=== PATIENT | female | born 1965 | race Native Hawaiian/Other Pacific Islander ===

== ENCOUNTER 2018-03-13 19:18 | Inpatient (IN) | payer MEDICAID, OTHER ==
[~2018-03-13] VITALS: Ht 162.6 cm; Wt 83.1 kg
[~2018-03-13 19:18] MED LIST: ATEN-188 PO; LISI-618 PO; LURA40 PO
[2018-03-13] MEDS ORDERED: LORazepam 2 MG/ML VIAL IM ONE (21:00)
[2018-03-13] MEDS ORDERED: DiphenhydrAMINE HCL 50 MG/ML VIAL IM ONE (21:00)
[2018-03-13] MEDS ORDERED: HALOPERIDOL LACTATE 5 MG/ML VIAL IM ONE (21:00)
[2018-03-13] MEDS ORDERED: HALOPERIDOL 5 MG TABLET PO PRN (21:30)
[2018-03-13] MEDS ORDERED: ZOLPIDEM TARTRATE 10 MG TABLET PO PRN (21:30)
[2018-03-13] MEDS ORDERED: LORazepam 2 MG TABLET PO PRN (21:30)
[2018-03-13 22:00] LABS: BASOPHILS % (AUTO) 0.4 % (0.0-2.0); EOSINOPHILS % (AUTO) 0.9 % (1.0-6.0); HEMATOCRIT 30.2 % (36-46); HEMOGLOBIN 9.3 g/dL (12.0-16.0); LYMPHOCYTES # (AUTO) 2.4 K/uL (1.0-4.8); MEAN CORPUSCULAR HEMOGLOBIN 22.3 pg (26.0-34.0); MEAN CORPUSCULAR HGB CONC 30.7 G/dL (31.0-37.0); MEAN CORPUSCULAR VOLUME 73 fL (80-100); MONOCYTES # (AUTO) 0.6 K/uL (0.1-1.0); MONOCYTES % (AUTO) 7.7 % (2.0-9.0); NEUTROPHILS # (AUTO) 4.5 K/uL (1.8-7.7); PLATELET COUNT (AUTO) 280 K/uL (150-450); RED BLOOD CELL COUNT(AUTO) 4.15 MIL/uL (4.00-5.20); RED CELL DISTRIBUTION WIDTH 18.4 % (11.5-14.5)
[2018-03-13 22:13] LABS: ANION GAP 7 mmol/L (8-16); CALCIUM, TOTAL 8.5 mg/dL (8.8-10.5); CARBON DIOXIDE 27 mmol/L (22-29); CHLORIDE 103 mmol/L (98-107); CREATININE 0.66 mg/dL (0.60-1.30); GLOMERULAR FILTR. RATE CALC > 60 mL/min (>60); GLUCOSE,RANDOM 84 mg/dL (70-110); POTASSIUM 3.3 mmol/L (3.5-5.1); SODIUM SERUM 137 mmol/L (136-145); UREA NITROGEN, BLOOD 13 mg/dL (7-18)
[2018-03-13 22:28] LABS: ALANINE AMINOTRANSFERASE 15 U/L (12-78); ALBUMIN 3.3 g/dL (3.4-5.0); ALKALINE PHOSPHATASE 71 U/L (46-116); ASPARTATE AMINOTRANSFERASE 17 U/L (15-37); BILIRUBIN,TOTAL 0.3 mg/dL (0.1-1.0); HCG,QUANTITATIVE < 1 mIU/mL (0-6); THYROID STIMULATING HORMONE 0.73 uIU/mL (0.36-3.74); TOTAL PROTEIN, SERUM 7.4 g/dL (6.4-8.2)
[2018-03-13] MEDS ORDERED: POTASSIUM CHLORIDE 20 MEQ ER TABLET PO ONE (22:30)
[2018-03-13 22:34] LABS: PLATELET MORPHOLOGY COMMENT NORMAL
[2018-03-14 03:11] VITALS: BP 132/70
[2018-03-14] MEDS ORDERED: PNEUMOCOCCAL VACCINE POLYVALENT 0.5 ML VIAL [PPSV23] IM ONE (03:15)
[2018-03-14] MEDS ORDERED: TUBERCULIN, PURIFIED PROTEIN DERIVATIVE 5 TU/0.1 ML SYG ID ONE (12:15)
[2018-03-14] MEDS ORDERED: MAG HYDROX/AL HYDROX/SIMETH ES 30 ML SUSPENSION UDCUP PO PRN (12:15)
[2018-03-14] MEDS ORDERED: OLANZapine 5 MG RAPDIS TABLET PO PRN (12:15)
[2018-03-14] MEDS ORDERED: GuaiFENesin/D-METHORPHAN [SUGAR-FREE] 200-20MG/10 ML SYRUP UDCUP PO PRN (12:15)
[2018-03-14] MEDS ORDERED: PROMETHAZINE HCL 25 MG TABLET PO PRN (12:15)
[2018-03-14] MEDS ORDERED: ACETAMINOPHEN 325 MG TABLET PO PRN (12:15)
[2018-03-14] MEDS ORDERED: HydrOXYzine PAMOATE 50 MG CAPSULE PO PRN (12:15)
[2018-03-14] MEDS ORDERED: LOPERAMIDE HCL 2 MG CAPSULE PO PRN (12:15)
[2018-03-14] MEDS ORDERED: MAGNESIUM HYDROXIDE SUSPENSION 30 ML UDCUP PO PRN (12:15)
[2018-03-14] MEDS: THIAMINE HCL 100 MG TABLET PO SCH (17:04)
[2018-03-14 17:07] VITALS: BP 157/87
[2018-03-14] MEDS ORDERED: OLANZapine 5 MG RAPDIS TABLET PO SCH (21:00)
[2018-03-15 06:13] VITALS: BP 130/75
[2018-03-15 08:10] VITALS: BP 130/73
[2018-03-15] MEDS: MULTIVITAMINS WITH MINERALS, THERAPEUTIC TABLET PO SCH (08:27)
[2018-03-15] MEDS: FOLIC ACID 1 MG TABLET PO SCH (08:27)
[2018-03-15] MEDS: LISINOPRIL 20 MG TABLET PO SCH (08:28)
[2018-03-15] MEDS: NALTREXONE HCL 50 MG TABLET PO SCH (08:28)
[2018-03-15] MEDS: THIAMINE HCL 100 MG TABLET PO SCH ×2 (08:28→16:56)
[2018-03-15] MEDS: FLUoxetine HCL 20 MG CAPSULE PO SCH (08:28)
[2018-03-15 16:51] VITALS: BP 139/82
[2018-03-15] MEDS: OLANZapine 10 MG RAPDIS TABLET PO SCH (21:00)
[2018-03-16 02:39] VITALS: BP 135/85
[2018-03-16 08:14] VITALS: BP 158/93
[2018-03-16 08:59] LABS: ANION GAP 10 mmol/L (8-16); CALCIUM, TOTAL 8.8 mg/dL (8.8-10.5); CARBON DIOXIDE 25 mmol/L (22-29); CHLORIDE 106 mmol/L (98-107); CHOL/HDL RATIO 2.2 (3.9-5.7); CHOLESTEROL 124 mg/dL (131-200); GLOMERULAR FILTR. RATE CALC > 60 mL/min (>60); GLUCOSE,RANDOM 85 mg/dL (70-110); HDL CHOLESTEROL 56 mg/dL (40-60); LDL CHOL (CALC.) 55 mg/dL (0-130); POTASSIUM 3.7 mmol/L (3.5-5.1); SODIUM SERUM 141 mmol/L (136-145); TRIGLYCERIDES 66 mg/dL (15-150); UREA NITROGEN, BLOOD 15 mg/dL (7-18)
[2018-03-16] MEDS: FLUoxetine HCL 20 MG CAPSULE PO SCH (09:00)
[2018-03-16] MEDS: LISINOPRIL 20 MG TABLET PO SCH (09:00)
[2018-03-16] MEDS: MULTIVITAMINS WITH MINERALS, THERAPEUTIC TABLET PO SCH (09:00)
[2018-03-16] MEDS: FOLIC ACID 1 MG TABLET PO SCH (09:00)
[2018-03-16] MEDS: THIAMINE HCL 100 MG TABLET PO SCH ×2 (09:00→17:00)
[2018-03-16] MEDS: NALTREXONE HCL 50 MG TABLET PO SCH (09:00)
[2018-03-16] MEDS: OLANZapine 10 MG RAPDIS TABLET PO SCH (21:00)
[2018-03-17 06:51] VITALS: BP 135/80
[2018-03-17 08:32] VITALS: BP 160/91
[2018-03-17] MEDS: NALTREXONE HCL 50 MG TABLET PO SCH (08:49)
[2018-03-17] MEDS: FOLIC ACID 1 MG TABLET PO SCH (08:49)
[2018-03-17] MEDS: THIAMINE HCL 100 MG TABLET PO SCH ×2 (08:49→17:00)
[2018-03-17] MEDS: FLUoxetine HCL 20 MG CAPSULE PO SCH (08:49)
[2018-03-17] MEDS: LISINOPRIL 20 MG TABLET PO SCH (08:49)
[2018-03-17] MEDS: MULTIVITAMINS WITH MINERALS, THERAPEUTIC TABLET PO SCH (08:50)
[2018-03-17 09:55] VITALS: BP 155/90
[2018-03-17 16:09] VITALS: BP 153/76
[2018-03-17] MEDS: OLANZapine 10 MG RAPDIS TABLET PO SCH (20:31)
[2018-03-18 00:08] VITALS: BP 145/93
[2018-03-18 08:10] VITALS: BP 154/78
[2018-03-18] MEDS: FLUoxetine HCL 20 MG CAPSULE PO SCH (08:21)
[2018-03-18] MEDS: MULTIVITAMINS WITH MINERALS, THERAPEUTIC TABLET PO SCH (08:21)
[2018-03-18] MEDS: FOLIC ACID 1 MG TABLET PO SCH (08:21)
[2018-03-18] MEDS: LISINOPRIL 20 MG TABLET PO SCH (08:22)
[2018-03-18] MEDS: NALTREXONE HCL 50 MG TABLET PO SCH (08:22)
[2018-03-18] MEDS: THIAMINE HCL 100 MG TABLET PO SCH ×2 (08:22→17:00)
[2018-03-18 09:30] VITALS: BP 145/74
[2018-03-18] MEDS: OLANZapine 10 MG RAPDIS TABLET PO SCH (21:15)
[2018-03-18] MEDS: DiphenhydrAMINE HCL 25 MG CAPSULE PO SCH (21:15)
[2018-03-18] MEDS ORDERED: CloNIDine HCL 0.1 MG TABLET PO PRN (23:15)
[2018-03-19 08:14] VITALS: BP 146/79
[2018-03-19] MEDS: FOLIC ACID 1 MG TABLET PO SCH (08:19)
[2018-03-19] MEDS: AmLODIPine BESYLATE 5 MG TABLET PO SCH (08:19)
[2018-03-19] MEDS: MULTIVITAMINS WITH MINERALS, THERAPEUTIC TABLET PO SCH (08:19)
[2018-03-19] MEDS: FLUoxetine HCL 20 MG CAPSULE PO SCH (08:20)
[2018-03-19] MEDS: THIAMINE HCL 100 MG TABLET PO SCH ×2 (08:20→17:00)
[2018-03-19] MEDS: NALTREXONE HCL 50 MG TABLET PO SCH (08:20)
[2018-03-19] MEDS: LISINOPRIL 20 MG TABLET PO SCH (08:20)
[2018-03-19 14:30] VITALS: BP 138/94
[2018-03-19] MEDS: OLANZapine 10 MG RAPDIS TABLET PO SCH (20:38)
[2018-03-19] MEDS: DiphenhydrAMINE HCL 25 MG CAPSULE PO SCH (21:00)
[2018-03-20 04:24] VITALS: BP 135/82
[2018-03-20] MEDS: NALTREXONE HCL 50 MG TABLET PO SCH (08:27)
[2018-03-20] MEDS: THIAMINE HCL 100 MG TABLET PO SCH ×2 (08:27→16:57)
[2018-03-20] MEDS: MULTIVITAMINS WITH MINERALS, THERAPEUTIC TABLET PO SCH (08:27)
[2018-03-20] MEDS: AmLODIPine BESYLATE 5 MG TABLET PO SCH (08:27)
[2018-03-20] MEDS: FOLIC ACID 1 MG TABLET PO SCH (08:27)
[2018-03-20] MEDS: FLUoxetine HCL 20 MG CAPSULE PO SCH (08:27)
[2018-03-20] MEDS: LISINOPRIL 20 MG TABLET PO SCH (08:28)
[2018-03-20 16:06] VITALS: BP 138/84
[2018-03-20] MEDS: DiphenhydrAMINE HCL 25 MG CAPSULE PO SCH (21:00)
[2018-03-20] MEDS: OLANZapine 10 MG RAPDIS TABLET PO SCH (21:00)
[2018-03-21 05:59] VITALS: BP 135/78
[2018-03-21] MEDS: LISINOPRIL 20 MG TABLET PO SCH (09:00)
[2018-03-21] MEDS: THIAMINE HCL 100 MG TABLET PO SCH ×2 (09:00→17:00)
[2018-03-21] MEDS: FLUoxetine HCL 20 MG CAPSULE PO SCH (09:00)
[2018-03-21] MEDS: FOLIC ACID 1 MG TABLET PO SCH (09:00)
[2018-03-21] MEDS: AmLODIPine BESYLATE 5 MG TABLET PO SCH (09:00)
[2018-03-21] MEDS: NALTREXONE HCL 50 MG TABLET PO SCH (09:00)
[2018-03-21] MEDS: MULTIVITAMINS WITH MINERALS, THERAPEUTIC TABLET PO SCH (09:07)
[2018-03-21] MEDS: DiphenhydrAMINE HCL 25 MG CAPSULE PO SCH (21:00)
[2018-03-21] MEDS: OLANZapine 10 MG RAPDIS TABLET PO SCH (21:00)
[2018-03-22 06:11] VITALS: BP 141/89
[2018-03-22] MEDS: MULTIVITAMINS WITH MINERALS, THERAPEUTIC TABLET PO SCH (08:13)
[2018-03-22] MEDS: FLUoxetine HCL 20 MG CAPSULE PO SCH (08:19)
[2018-03-22] MEDS: FOLIC ACID 1 MG TABLET PO SCH (08:19)
[2018-03-22] MEDS: AmLODIPine BESYLATE 5 MG TABLET PO SCH (08:20)
[2018-03-22] MEDS: NALTREXONE HCL 50 MG TABLET PO SCH (08:21)
[2018-03-22] MEDS: LISINOPRIL 20 MG TABLET PO SCH (08:21)
[2018-03-22] MEDS: THIAMINE HCL 100 MG TABLET PO SCH ×2 (08:43→16:25)
[2018-03-22] MEDS: OLANZapine 10 MG RAPDIS TABLET PO SCH (21:00)
[2018-03-22] MEDS: DiphenhydrAMINE HCL 25 MG CAPSULE PO SCH (21:00)
[2018-03-23 02:54] VITALS: BP 145/78
[2018-03-23] MEDS: MULTIVITAMINS WITH MINERALS, THERAPEUTIC TABLET PO SCH (08:32)
[2018-03-23] MEDS: THIAMINE HCL 100 MG TABLET PO SCH ×2 (08:33→17:00)
[2018-03-23] MEDS: FOLIC ACID 1 MG TABLET PO SCH (08:33)
[2018-03-23] MEDS: AmLODIPine BESYLATE 5 MG TABLET PO SCH (08:33)
[2018-03-23] MEDS: FLUoxetine HCL 20 MG CAPSULE PO SCH (08:33)
[2018-03-23] MEDS: NALTREXONE HCL 50 MG TABLET PO SCH (08:33)
[2018-03-23] MEDS: LISINOPRIL 20 MG TABLET PO SCH (08:34)
[2018-03-23] MEDS: OLANZapine 10 MG RAPDIS TABLET PO SCH (21:00)
[2018-03-23] MEDS: DiphenhydrAMINE HCL 25 MG CAPSULE PO SCH (21:00)
[2018-03-24 02:45] VITALS: BP 130/75
[2018-03-24] MEDS: MULTIVITAMINS WITH MINERALS, THERAPEUTIC TABLET PO SCH (08:30)
[2018-03-24] MEDS: FLUoxetine HCL 20 MG CAPSULE PO SCH (08:31)
[2018-03-24] MEDS: FOLIC ACID 1 MG TABLET PO SCH (08:31)
[2018-03-24] MEDS: AmLODIPine BESYLATE 5 MG TABLET PO SCH (08:31)
[2018-03-24] MEDS: THIAMINE HCL 100 MG TABLET PO SCH (08:32)
[2018-03-24] MEDS: NALTREXONE HCL 50 MG TABLET PO SCH (08:32)
[2018-03-24] MEDS: LISINOPRIL 20 MG TABLET PO SCH (08:32)
[2018-03-24] MEDS: OLANZapine 10 MG RAPDIS TABLET PO SCH (21:00)
[2018-03-24] MEDS: DiphenhydrAMINE HCL 25 MG CAPSULE PO SCH (21:00)
[2018-03-25] MEDS: AmLODIPine BESYLATE 5 MG TABLET PO SCH (08:15)
[2018-03-25] MEDS: LISINOPRIL 20 MG TABLET PO SCH (08:16)
[2018-03-25] MEDS: FLUoxetine HCL 20 MG CAPSULE PO SCH (08:16)
[2018-03-25] MEDS: NALTREXONE HCL 50 MG TABLET PO SCH (08:16)
[2018-03-25] MEDS: MULTIVITAMINS WITH MINERALS, THERAPEUTIC TABLET PO SCH (08:16)
[2018-03-25] MEDS: OLANZapine 10 MG RAPDIS TABLET PO SCH (21:00)
[2018-03-25] MEDS: DiphenhydrAMINE HCL 25 MG CAPSULE PO SCH (21:00)
[2018-03-26] MEDS: MULTIVITAMINS WITH MINERALS, THERAPEUTIC TABLET PO SCH (08:26)
[2018-03-26] MEDS: AmLODIPine BESYLATE 5 MG TABLET PO SCH (08:27)
[2018-03-26] MEDS: FLUoxetine HCL 20 MG CAPSULE PO SCH (08:27)
[2018-03-26] MEDS: LISINOPRIL 20 MG TABLET PO SCH (08:28)
[2018-03-26] MEDS: NALTREXONE HCL 50 MG TABLET PO SCH (08:28)
[2018-03-26] MEDS: DiphenhydrAMINE HCL 25 MG CAPSULE PO SCH (20:50)
[2018-03-26] MEDS: OLANZapine 10 MG RAPDIS TABLET PO SCH (20:50)
[2018-03-27] MEDS: AmLODIPine BESYLATE 5 MG TABLET PO SCH (08:17)
[2018-03-27] MEDS: NALTREXONE HCL 50 MG TABLET PO SCH (08:18)
[2018-03-27] MEDS: LISINOPRIL 20 MG TABLET PO SCH (08:18)
[2018-03-27] MEDS: MULTIVITAMINS WITH MINERALS, THERAPEUTIC TABLET PO SCH (08:18)
[2018-03-27] MEDS: FLUoxetine HCL 20 MG CAPSULE PO SCH (08:18)
[2018-03-27] MEDS: DiphenhydrAMINE HCL 25 MG CAPSULE PO SCH (20:46)
[2018-03-27] MEDS: OLANZapine 10 MG RAPDIS TABLET PO SCH (20:46)
[2018-03-28] MEDS: MULTIVITAMINS WITH MINERALS, THERAPEUTIC TABLET PO SCH (08:59)
[2018-03-28] MEDS: AmLODIPine BESYLATE 5 MG TABLET PO SCH (09:00)
[2018-03-28] MEDS: FLUoxetine HCL 20 MG CAPSULE PO SCH (09:00)
[2018-03-28] MEDS: NALTREXONE HCL 50 MG TABLET PO SCH (09:00)
[2018-03-28] MEDS: LISINOPRIL 20 MG TABLET PO SCH (09:00)
[2018-03-28] MEDS ORDERED: HALOPERIDOL 1 MG TABLET PO ONE (10:45)
[2018-03-28] MEDS ORDERED: HALOPERIDOL 1 MG TABLET PO PRN (10:45)
[2018-03-28] MEDS ORDERED: HALOPERIDOL LACTATE 5 MG/ML VIAL IM PRN ×3 (11:00→12:45)
[2018-03-28] MEDS: HALOPERIDOL 1 MG TABLET PO SCH ×2 (14:05→16:34)
[2018-03-28] MEDS: DiphenhydrAMINE HCL 25 MG CAPSULE PO SCH (20:47)
[2018-03-29] MEDS: LISINOPRIL 20 MG TABLET PO SCH (09:00)
[2018-03-29] MEDS: NALTREXONE HCL 50 MG TABLET PO SCH (09:00)
[2018-03-29] MEDS: AmLODIPine BESYLATE 5 MG TABLET PO SCH (09:00)
[2018-03-29] MEDS: MULTIVITAMINS WITH MINERALS, THERAPEUTIC TABLET PO SCH (09:46)
[2018-03-29] MEDS: HALOPERIDOL 1 MG TABLET PO SCH ×3 (09:46→16:45)
[2018-03-29] MEDS: DiphenhydrAMINE HCL 25 MG CAPSULE PO SCH (21:14)
[2018-03-29] MEDS: OLANZapine 10 MG RAPDIS TABLET PO SCH (21:14)
[2018-03-30] MEDS: MULTIVITAMINS WITH MINERALS, THERAPEUTIC TABLET PO SCH (08:36)
[2018-03-30] MEDS: NALTREXONE HCL 50 MG TABLET PO SCH (09:00)
[2018-03-30] MEDS: LISINOPRIL 20 MG TABLET PO SCH (09:00)
[2018-03-30] MEDS: AmLODIPine BESYLATE 5 MG TABLET PO SCH (09:00)
[2018-03-30] MEDS: OLANZapine 10 MG RAPDIS TABLET PO SCH (20:05)
[2018-03-30] MEDS: DiphenhydrAMINE HCL 25 MG CAPSULE PO SCH (20:05)
[2018-03-31 08:13] VITALS: BP 157/91
[2018-03-31] MEDS: MULTIVITAMINS WITH MINERALS, THERAPEUTIC TABLET PO SCH (08:22)
[2018-03-31] MEDS: AmLODIPine BESYLATE 5 MG TABLET PO SCH (08:23)
[2018-03-31] MEDS: LISINOPRIL 20 MG TABLET PO SCH (08:23)
[2018-03-31] MEDS: NALTREXONE HCL 50 MG TABLET PO SCH (08:23)
[2018-03-31 14:00] VITALS: BP 126/73
[2018-03-31 16:08] VITALS: BP 153/94
[2018-03-31] MEDS: DiphenhydrAMINE HCL 25 MG CAPSULE PO SCH (20:11)
[2018-03-31] MEDS: OLANZapine 10 MG RAPDIS TABLET PO SCH (20:11)
[2018-04-01] MEDS: MULTIVITAMINS WITH MINERALS, THERAPEUTIC TABLET PO SCH (08:09)
[2018-04-01] MEDS: AmLODIPine BESYLATE 5 MG TABLET PO SCH (08:11)
[2018-04-01] MEDS: LISINOPRIL 20 MG TABLET PO SCH (08:12)
[2018-04-01] MEDS: NALTREXONE HCL 50 MG TABLET PO SCH (08:12)
[2018-04-01 16:21] VITALS: BP 135/82
[2018-04-01] MEDS: OLANZapine 10 MG RAPDIS TABLET PO SCH (20:17)
[2018-04-01] MEDS: DiphenhydrAMINE HCL 25 MG CAPSULE PO SCH (20:17)
[2018-04-02 08:08] VITALS: BP 132/75
[2018-04-02] MEDS: MULTIVITAMINS WITH MINERALS, THERAPEUTIC TABLET PO SCH (08:33)
[2018-04-02] MEDS: NALTREXONE HCL 50 MG TABLET PO SCH (09:00)
[2018-04-02] MEDS: LISINOPRIL 20 MG TABLET PO SCH (09:00)
[2018-04-02] MEDS: AmLODIPine BESYLATE 5 MG TABLET PO SCH (09:00)
[2018-04-02 16:08] VITALS: BP 135/81
[2018-04-02] MEDS: OLANZapine 10 MG RAPDIS TABLET PO SCH (20:09)
[2018-04-02] MEDS: DiphenhydrAMINE HCL 25 MG CAPSULE PO SCH (20:09)
[2018-04-03 07:05] VITALS: BP 140/90
[2018-04-03] MEDS ORDERED: DIPH25 PO (08:51)
[2018-04-03] MEDS ORDERED: OLAN10TA6 PO (08:51)
[2018-04-03] MEDS ORDERED: NALT50TA6 PO (08:51)
[2018-04-03] MEDS: LISINOPRIL 20 MG TABLET PO SCH (09:00)
[2018-04-03] MEDS: NALTREXONE HCL 50 MG TABLET PO SCH (09:00)
[2018-04-03] MEDS: AmLODIPine BESYLATE 5 MG TABLET PO SCH (09:00)
[2018-04-03] MEDS: MULTIVITAMINS WITH MINERALS, THERAPEUTIC TABLET PO SCH (09:05)
== END 2018-04-03 11:40 | disposition home or self-care (01) | DRG 750 ==
LOC: EMS 19:20 → B3A 21:00
PROVIDERS: ADMIT Psychiatry & Neurology Psychiatry; ATTEND Psychiatry & Neurology Psychiatry
DX: F25.0 Schizoaffective disorder, bipolar type (principal); Z59.0 Homelessness; D64.9 Anemia, unspecified; Z91.14 Patient's other noncompliance with medication regimen; Z28.21 Immunization not carried out because of patient refusal; E87.6 Hypokalemia; G47.00 Insomnia, unspecified; I10 Essential (primary) hypertension; Z91.19 Patient's noncompliance with other medical treatment and regimen; F41.9 Anxiety disorder, unspecified; M54.9 Dorsalgia, unspecified
CPT/HCPCS: 80074; 84443; 96372; G0480; J1200; J1630; J2060

== ENCOUNTER 2020-06-17 22:37 | Inpatient (IN) | payer MEDICAID, OTHER ==
[~2020-06-17] VITALS: Ht 157.5 cm; Wt 101.0 kg
[~2020-06-17 22:37] MED LIST changes: -ATEN-188 PO; -LISI-618 PO; +LISI20TA24 PO; -LURA40 PO; +NALT50TA6 PO
[2020-06-17 23:04] LABS: BASOPHILS % (AUTO) 0.7 % (0.0-2.0); EOSINOPHILS % (AUTO) 1.3 % (1.0-6.0); HEMATOCRIT 39.9 % (36-46); HEMOGLOBIN 12.9 g/dL (12.0-16.0); LYMPHOCYTES % (AUTO) 37.6 % (22.0-44.0); MEAN CORPUSCULAR HEMOGLOBIN 28.4 pg (26.0-34.0); MEAN CORPUSCULAR HGB CONC 32.3 G/dL (31.0-37.0); MEAN CORPUSCULAR VOLUME 88 fL (80-100); MONOCYTES # (AUTO) 0.6 K/uL (0.1-1.0); MONOCYTES % (AUTO) 8.2 % (2.0-9.0); NEUTROPHILS # (AUTO) 4.1 K/uL (1.8-7.7); NEUTROPHILS % (AUTO) 52.2 % (40.0-70.0); PLATELET COUNT (AUTO) 393 K/uL (150-450); RED BLOOD CELL COUNT(AUTO) 4.55 MIL/uL (4.00-5.20)
[2020-06-17 23:14] LABS: ANION GAP 10 mmol/L (8-16); CALCIUM, TOTAL 9.3 mg/dL (8.8-10.5); CARBON DIOXIDE 26 mmol/L (22-29); CHLORIDE 103 mmol/L (98-107); CREATININE 0.89 mg/dL (0.60-1.30); GLOMERULAR FILTR. RATE CALC > 60 mL/min (>60); GLUCOSE,RANDOM 141 mg/dL (70-110); POTASSIUM 3.4 mmol/L (3.5-5.1); SODIUM SERUM 139 mmol/L (136-145); UREA NITROGEN, BLOOD 8 mg/dL (7-18)
[2020-06-17 23:20] LABS: ALANINE AMINOTRANSFERASE 25 U/L (12-78); ALBUMIN 3.7 g/dL (3.4-5.0); ALKALINE PHOSPHATASE 102 U/L (46-116); ASPARTATE AMINOTRANSFERASE 26 U/L (15-37); BILIRUBIN,TOTAL 0.4 mg/dL (0.1-1.0); TOTAL PROTEIN, SERUM 8.1 g/dL (6.4-8.2)
[2020-06-18 00:43] LABS: AMPHET/METH SCREEN,URINE NEGATIVE (NEGATIVE); BARBITURATE SCREEN, URINE NEGATIVE (NEGATIVE); BENZODIAZEPINES SCREEN,URINE NEGATIVE (NEGATIVE); CANNABINOID SCREEN,URINE NEGATIVE (NEGATIVE); COCAINE SCREEN,URINE NEGATIVE (NEGATIVE); METHADONE SCREEN, URINE NEGATIVE (NEGATIVE); OPIATE SCREEN,URINE NEGATIVE (NEGATIVE)
[2020-06-18] MEDS ORDERED: HALOPERIDOL 5 MG TABLET PO PRN (00:45)
[2020-06-18] MEDS ORDERED: ZOLPIDEM TARTRATE 10 MG TABLET PO PRN (00:45)
[2020-06-18] MEDS ORDERED: LORazepam 2 MG TABLET PO PRN (00:45)
[2020-06-18 00:46] LABS: PHENCYCLIDINE SCREEN,URINE NEGATIVE (NEGATIVE)
[2020-06-18 01:29] LABS: COVID AG,FIA SOURCE NASOPHARYNGEAL
[2020-06-18] MEDS ORDERED: POTASSIUM CHLORIDE 20 MEQ ER TABLET PO ONE (02:15)
[2020-06-18 03:28] LABS: APPEARANCE,URINE CLEAR (CLEAR); BILIRUBIN,URINE NEGATIVE (NEGATIVE); GLUCOSE, URINE (UA) NEGATIVE (NEGATIVE); KETONES,URINE NEGATIVE (NEGATIVE); LEUKOCYTE ESTERASE ,URINE NEGATIVE (NEGATIVE); NITRATE,URINE NEGATIVE (NEGATIVE); OCCULT BLOOD,URINE NEGATIVE (NEGATIVE); PROTEIN,URINE NEGATIVE (NEGATIVE); UROBILINOGEN,URINE 0.2 mg/dL (<=1.0)
[2020-06-18] MEDS ORDERED: HALOPERIDOL 5 MG TABLET PO ONE (05:00)
[2020-06-18] MEDS ORDERED: DiphenhydrAMINE HCL 25 MG CAPSULE PO ONE (05:00)
[2020-06-18] MEDS ORDERED: IBUPROFEN 800 MG TABLET PO ONE (05:30)
[2020-06-18 08:40] VITALS: BP 189/109
[2020-06-18] MEDS ORDERED: CloNIDine HCL 0.1 MG TABLET PO PRN (15:45)
[2020-06-18 16:07] VITALS: BP 143/80
[2020-06-18] MEDS: OLANZapine 5 MG RAPDIS TABLET PO SCH (21:33)
[2020-06-19 07:48] LABS: CHOL/HDL RATIO 2.9 (3.9-5.7)
[2020-06-19] MEDS: AmLODIPine BESYLATE 5 MG TABLET PO SCH (08:21)
[2020-06-19] MEDS: LOSARTAN POTASSIUM 50 MG TABLET PO SCH (08:21)
[2020-06-19] MEDS: METOPROLOL SUCCINATE 50 MG ER TABLET PO SCH (08:21)
[2020-06-19 09:33] VITALS: BP 148/72
[2020-06-19 16:27] VITALS: BP 157/92
[2020-06-19] MEDS: OLANZapine 5 MG RAPDIS TABLET PO SCH (20:44)
[2020-06-19] MEDS ORDERED: ACETAMINOPHEN 325 MG TABLET PO PRN (21:15)
[2020-06-19] MEDS ORDERED: CloNIDine HCL 0.1 MG TABLET PO PRN (21:15)
[2020-06-19] MEDS ORDERED: BACITRACIN 28 GM OINTMENT TP PRN (21:15)
[2020-06-19] MEDS ORDERED: IBUPROFEN 600 MG TABLET PO PRN (21:15)
[2020-06-19] MEDS ORDERED: BENZOCAINE/MENTHOL LOZENGE PO PRN (21:15)
[2020-06-19] MEDS ORDERED: LOPERAMIDE HCL 2 MG CAPSULE PO PRN (21:15)
[2020-06-19] MEDS ORDERED: MAG HYDROX/AL HYDROX/SIMETH ES 30 ML SUSPENSION UDCUP PO PRN (21:15)
[2020-06-19] MEDS ORDERED: MAGNESIUM HYDROXIDE SUSPENSION 30 ML UDCUP PO PRN (21:15)
[2020-06-19] MEDS ORDERED: ALBUTEROL SULFATE HFA 90 MCG/PUFF 8 GM INHALER IH PRN (21:15)
[2020-06-19] MEDS ORDERED: PETROLATUM,WHITE 28 GM JELLY TP PRN (21:15)
[2020-06-19] MEDS ORDERED: ONDANSETRON HCL 4 MG TABLET PO PRN (21:15)
[2020-06-20] MEDS: AmLODIPine BESYLATE 5 MG TABLET PO SCH (07:52)
[2020-06-20] MEDS: LOSARTAN POTASSIUM 50 MG TABLET PO SCH (07:52)
[2020-06-20] MEDS: OMEPRAZOLE 20 MG CAPSULE PO SCH (07:52)
[2020-06-20] MEDS: METOPROLOL SUCCINATE 50 MG ER TABLET PO SCH (07:52)
[2020-06-20] MEDS: DOCUSATE SODIUM 100 MG CAPSULE PO SCH (07:52)
[2020-06-20 09:20] VITALS: BP 189/100
[2020-06-20 09:50] VITALS: BP 164/88
[2020-06-20 16:17] VITALS: BP 136/72
[2020-06-20] MEDS: OLANZapine 5 MG RAPDIS TABLET PO SCH (20:11)
[2020-06-21 00:53] VITALS: BP 123/61
[2020-06-21 08:08] LABS: ANION GAP 7 mmol/L (8-16); CALCIUM, TOTAL 8.7 mg/dL (8.8-10.5); CARBON DIOXIDE 28 mmol/L (22-29); CHLORIDE 105 mmol/L (98-107); CREATININE 0.84 mg/dL (0.60-1.30); GLOMERULAR FILTR. RATE CALC > 60 mL/min (>60); GLUCOSE,RANDOM 103 mg/dL (70-110); SODIUM SERUM 140 mmol/L (136-145); UREA NITROGEN, BLOOD 13 mg/dL (7-18)
[2020-06-21] MEDS: OMEPRAZOLE 20 MG CAPSULE PO SCH (08:28)
[2020-06-21] MEDS: AmLODIPine BESYLATE 5 MG TABLET PO SCH (08:28)
[2020-06-21] MEDS: LOSARTAN POTASSIUM 50 MG TABLET PO SCH (08:28)
[2020-06-21] MEDS: METOPROLOL SUCCINATE 50 MG ER TABLET PO SCH (08:28)
[2020-06-21] MEDS: DOCUSATE SODIUM 100 MG CAPSULE PO SCH (08:28)
[2020-06-21 08:30] VITALS: BP 186/114
[2020-06-21 09:54] VITALS: BP 166/105
[2020-06-21] MEDS ORDERED: OMEP20 PO (11:31)
[2020-06-21] MEDS ORDERED: OLAN10TA3 PO (11:31)
[2020-06-21] MEDS ORDERED: DOCU-275 PO (11:31)
[2020-06-21] MEDS ORDERED: AMLO-257 PO (11:31)
[2020-06-21] MEDS ORDERED: LOSA50TA37 PO (11:31)
[2020-06-21] MEDS ORDERED: METO-558 PO (11:31)
[2020-06-21] MEDS ORDERED: OLANZapine 10 MG RAPDIS TABLET PO SCH (21:00)
== END 2020-06-21 12:45 | disposition home or self-care (01) | DRG 750 ==
LOC: EMS 22:37 → 3EI 06-18 01:00
PROVIDERS: ADMIT Psychiatry & Neurology Psychiatry; ATTEND Psychiatry & Neurology Psychiatry
DX: F20.9 Schizophrenia, unspecified (principal); R45.851 Suicidal ideations; Z91.14 Patient's other noncompliance with medication regimen; E87.6 Hypokalemia; K59.00 Constipation, unspecified; F19.10 Other psychoactive substance abuse, uncomplicated; G47.00 Insomnia, unspecified; I10 Essential (primary) hypertension; Z20.822 Contact with and (suspected) exposure to COVID-19; F32.9 Major depressive disorder, single episode, unspecified; F41.9 Anxiety disorder, unspecified; Z79.899 Other long term (current) drug therapy; Z72.0 Tobacco use; Z71.6 Tobacco abuse counseling; Z71.51 Drug abuse counseling and surveillance of drug abuser
CPT/HCPCS: 80048; 80053; 80061; 81003; 85025; 87426; 99285; G0480

== ENCOUNTER → 2020-06-24 | Outpatient (CLI) | payer OTHER ==
[~2020-06-24] MED LIST changes: +AMLO-257 PO; +DOCU-275 PO; -LISI20TA24 PO; +LOSA50TA37 PO; +METO-558 PO; -NALT50TA6 PO; +OLAN10TA3 PO; +OMEP20 PO
== END | disposition home or self-care (01) ==
LOC: RADPV 13:16
PROVIDERS: ATTEND Internal Medicine Cardiovascular Disease
DX: I08.1 Rheumatic disorders of both mitral and tricuspid valves (principal); I10 Essential (primary) hypertension
CPT/HCPCS: 93306

== ENCOUNTER 2021-02-14 13:33 | Emergency (ER) | payer OTHER ==
[~2021-02-14 13:33] MED LIST changes: +DOCU-270 PO; -DOCU-275 PO; +LOSA-382 PO; -LOSA50TA37 PO; -OLAN10TA3 PO; +OLAN10TA74 PO
[2021-02-14] MEDS ORDERED: OLAN10TA74 PO (18:53)
== END 2021-02-14 15:15 | disposition left against medical advice (07) ==
LOC: EMS 13:36
DX: Z53.21 Procedure and treatment not carried out due to patient leaving prior to being seen by health care provider (principal)

== ENCOUNTER 2021-02-15 02:50 | Emergency (ER) | payer OTHER ==
[~2021-02-15] VITALS: Ht 160 cm; Wt 113.6 kg
[~2021-02-15 02:50] MED LIST changes: -AMLO-257 PO; -DOCU-270 PO; -LOSA-382 PO; -METO-558 PO; -OMEP20 PO
[2021-02-15 03:12] VITALS: BP 131/69
[2021-02-15 04:14] LABS: BASOPHILS % (AUTO) 0.6 % (0.0-2.0); EOSINOPHILS % (AUTO) 1.9 % (1.0-6.0); HEMATOCRIT 38.2 % (36-46); HEMOGLOBIN 12.9 g/dL (12.0-16.0); LYMPHOCYTES # (AUTO) 3.1 K/uL (1.0-4.8); LYMPHOCYTES % (AUTO) 35.5 % (22.0-44.0); MEAN CORPUSCULAR HEMOGLOBIN 30.4 pg (26.0-34.0); MEAN CORPUSCULAR HGB CONC 33.7 G/dL (31.0-37.0); MEAN CORPUSCULAR VOLUME 90 fL (80-100); MONOCYTES # (AUTO) 0.8 K/uL (0.1-1.0); MONOCYTES % (AUTO) 8.5 % (2.0-9.0); NEUTROPHILS # (AUTO) 4.7 K/uL (1.8-7.7); NEUTROPHILS % (AUTO) 53.5 % (40.0-70.0); PLATELET COUNT (AUTO) 365 K/uL (150-450); RED BLOOD CELL COUNT(AUTO) 4.23 MIL/uL (4.00-5.20); RED CELL DISTRIBUTION WIDTH 14.9 % (11.5-14.5)
[2021-02-15 04:34] LABS: ANION GAP 7 mmol/L (8-16); CALCIUM, TOTAL 9.1 mg/dL (8.8-10.5); CARBON DIOXIDE 28 mmol/L (22-29); CHLORIDE 106 mmol/L (98-107); CREATININE 1.01 mg/dL (0.60-1.30); GLOMERULAR FILTR. RATE CALC > 60 mL/min (>60); GLUCOSE,RANDOM 121 mg/dL (70-110); POTASSIUM 4.2 mmol/L (3.5-5.1); SODIUM SERUM 141 mmol/L (136-145); UREA NITROGEN, BLOOD 16 mg/dL (7-18)
[2021-02-15 04:40] LABS: ALANINE AMINOTRANSFERASE 29 U/L (12-78); ALBUMIN 3.7 g/dL (3.4-5.0); ALKALINE PHOSPHATASE 126 U/L (46-116); ASPARTATE AMINOTRANSFERASE 24 U/L (15-37); BILIRUBIN,TOTAL 0.2 mg/dL (0.1-1.0)
[2021-02-15] MEDS ORDERED: OLANZapine 5 MG TABLET PO ONE (05:45)
== END 2021-02-15 09:51 | disposition home or self-care (01) ==
LOC: EMS 02:52
DX: F25.9 Schizoaffective disorder, unspecified (principal); F41.9 Anxiety disorder, unspecified; I10 Essential (primary) hypertension; Z76.0 Encounter for issue of repeat prescription
CPT/HCPCS: 36415; 80053; 85025; 99283; G0480